=== PATIENT | male | born 1975 | race Hispanic/Latino ===

== ENCOUNTER 2021-11-24 12:19 | Emergency (ER) | payer SELFPAY ==
[2021-11-24] MEDS ORDERED: Bupivacaine PF 0.5% 30 ML VIAL ONE (13:02)
[2021-11-24] MEDS ORDERED: Lidocaine 1% PF 5 ML VIAL ONE (13:02)
[2021-11-24] MEDS ORDERED: Bacitracin 1 PK ONE (13:55)
== END 2021-11-24 14:07 | disposition home or self-care (01) ==
LOC: CSHERS 12:19
DX: L03.011 Cellulitis of right finger (principal); L02.511 Cutaneous abscess of right hand; I10 Essential (primary) hypertension; F17.200 Nicotine dependence, unspecified, uncomplicated
CPT/HCPCS: 26010; 87070; 87186; 87205; S0020

== ENCOUNTER 2022-10-12 19:30 | Emergency (ER) | payer OTHER, SELFPAY ==
[2022-10-12] MEDS ORDERED: cloNIDine 0.1 MG TAB ONE (20:52)
[2022-10-12] MEDS ORDERED: Ketorolac Tromethamine 30 MG/ML VIAL ONE (20:52)
== END 2022-10-12 21:55 | disposition home or self-care (01) ==
LOC: CSHERS 19:30
DX: M10.9 Gout, unspecified (principal); I10 Essential (primary) hypertension; F17.200 Nicotine dependence, unspecified, uncomplicated
CPT/HCPCS: 96372; 99283; J1885

== ENCOUNTER 2022-11-26 15:21 | Emergency (ER) | payer OTHER ==
[2022-11-26] MEDS ORDERED: Boostrix 0.5 ML (Tdap) VIAL (>/=7 yrs of age) ONE (16:24)
== END 2022-11-26 17:37 | disposition home or self-care (01) ==
LOC: CSHERS 15:21
DX: S01.81XA Laceration without foreign body of other part of head, initial encounter (principal); I10 Essential (primary) hypertension; F17.210 Nicotine dependence, cigarettes, uncomplicated; W26.8XXA Contact with other sharp object(s), not elsewhere classified, initial encounter
CPT/HCPCS: 70450; 72125; 90471; 90715

== ENCOUNTER 2023-03-06 14:33 | Emergency (ER) | payer OTHER ==
[2023-03-06 15:40] LABS: SARS-CoV-2 NAA Rapid Test Not Detected (NotDetected)
== END 2023-03-06 16:53 | disposition home or self-care (01) ==
LOC: CSHERS 14:33
DX: B34.9 Viral infection, unspecified (principal); I10 Essential (primary) hypertension; F17.210 Nicotine dependence, cigarettes, uncomplicated
CPT/HCPCS: 99283